=== PATIENT | female | born 1965 | race Caucasian/White ===

== ENCOUNTER 2016-10-18 15:20 | Emergency (ER) | payer SELFPAY ==
[2016-10-18 15:37] LABS: Bilirubin Negative (Negative); Blood, Urine Small (Negative); Glucose, Urine (Dipstick) Negative (Negative); Ketone, Urine Negative (Negative); Nitrite Negative (Negative); Protein, Urine (Dipstick) Negative (Neg-Trace); Urobilinogen 0.2 mg/dL (0.2-1.0)
[2016-10-18 15:43] LABS: Bacteria/HPF Rare-Few HPF (None Seen); RBC/HPF 0-3 HPF (0-3); WBC/HPF None Seen HPF (0-3)
[2016-10-18 16:08] LABS: #Basophils 0.1 thou/uL (0.0-0.2); #Eosinphils 1.2 thou/uL (0.0-0.7); #Lymphocytes 1.1 thou/uL (1.20-3.40); #Monocytes 0.6 thou/uL (0.11-0.59); #Neutrophils 3.6 thou/uL (1.40-6.50); %Basophils 0.9 % (0.0-1.0); %Eosinophils 18.5 % (0.0-10.0); %Lymphocytes 16.5 % (21.0-51.0); %Monocytes 8.7 % (0.0-10.0); Hematocrit 37.3 % (36.0-47.0); Red Blood Cell (RBC) Count 4.31 mill/uL (4.20-5.40); White Blood Cell (WBC) Count 6.5 thou/uL (4.8-10.8)
[2016-10-18 16:23] LABS: ALT (SGPT) 17 U/L (0-55); AST (SGOT) 15 U/L (5-34); Alkaline Phosphatase 68 U/L (40-150); Anion Gap 15 mmol/L (10-20); BUN (Urea Nitrogen) 14 mg/dL (9.8-20.1); Bilirubin, Total 1.2 mg/dL (0.2-1.2); Calc. Creatinine Clearance 0 mL/min (70-130); Calcium 9.5 mg/dL (7.8-10.44); Carbon Dioxide 22 mmol/L (22-29); Chloride 107 mmol/L (98-107); Estimated GFR-MDRD 54; Globulin 2.6 g/dL (2.4-3.5); Lipase 46 U/L (8-78); Protein, Total 6.5 g/dL (6.0-8.3)
--- NOTE | 2016-10-18 16:50 | ERRECORD ---
[facility] EMERGENCY RECORD HPI GENERAL (15:45 KNGU) CHIEF COMPLAINT: Patient presents for evaluation of low back pain urine frequency stomach discomfort / green stool. HISTORIAN: History provided by patient, above symptoms x 1 day no nausea vomiting or fever or chills. MECHANISM OF INJURY: Unknown mechanism. LOCATION: Symptoms are localized, most severe to lower back. QUALITY: Pain is dull in nature, described as aching. SEVERITY: Maximum severity of symptoms mild, Currently symptoms are mild. TIME COURSE: Gradual onset of symptoms, There has been no change in the patient's symptoms over time, are intermittent. ASSOCIATED WITH: No associated symptoms. EXACERBATED BY: Patient's condition exacerbated by nothing. RELIEVED BY: Nothing tried for relief. ROS (15:48 KNGU) CONSTITUTIONAL: Negative constitutional review of systems. CARDIOVASCULAR: Negative cardiovascular review of systems. RESPIRATORY: Negative respiratory review of systems. GI: Historian reports abdominal pain. GENITOURINARY FEMALE: Historian reports urgency. SKIN: Negative skin review of systems. NEUROLOGIC: Negative neurologic review of systems. NOTES: All systems reviewed, negative except as described above. PAST MEDICAL HISTORY (15:27 BDON) MEDICAL HISTORY: Past medical history includes pulmonary disease, chronic obstructive pulmonary disease, Flu vaccine up to date, Tetanus immunization up to date, Pneumococcal vaccine up to date, Notes: Carpal Tunnel Syndrome Cervical Disc Displacement Lesion of Ulnar Nerve, Past medical history includes cardiac history, congestive heart failure, myocardial infarction,cardiac history, Treated with stent placement, Past medical history includes history of hyperlipidemia, high cholesterol, currently being treated, Past medical history includes history of hypertension, which has been treated, Patient is compliant. FEMALE SURGICAL HISTORY: Surgical history of section, Surgical history of orthopedic surgery, FOOT SURG. PSYCHIATRIC HISTORY: No previous psychiatric history. SOCIAL HISTORY: Patient drinks socially, twice a month, Patient denies drug use, Patient drinks socially, Patient is a former tobacco user, smoked cigarettes, Patient quit smoking less than 10 &a-1R&a+25V*p+0X*p1514Y*c202B*c15G*c2P*p-0X&a-25V&a+1R Name: Jennyfer Brasher : 1965 F51 MedRec: [id number] AcctNum: [id number] Prepared: Sarah Oct 18, 2016 18:00 by Interface Page 1 of 3 pMD [facility] EMERGENCY RECORD years ago. KNOWN ALLERGIES baclofen methocarbamol: Source: Patient CURRENT MEDICATIONS aspirin: TABLET : Strength - 325 mg : ORAL Patient Dose: 325 mg Oral once a day. (15:27 [facility]) ranitidine HCl: CAPSULE : Strength - 150 mg : ORAL Patient Dose: 2 times a day. (15:27 [facility]) carvedilol: TABLET : Strength - 6.25 mg : ORAL Patient Dose: once a day. (15:27 [facility]) clopidogrel: TABLET : Strength - 75 mg : ORAL Patient Dose: once a day. (15:27 [facility]) Crestor: TABLET : Strength - 20 mg : ORAL Patient Dose: once a day. (15:28 [facility]) potassium: TABLET : Strength - 75 mg : ORAL Patient Dose: unk null Oral once a day. (15:28 [facility]) Vitamin D3: CAPSULE : Strength - 1,000 unit : ORAL Patient Dose: once a day. (15:28 [facility]) Fish Oil: CAPSULE : Strength - 1,000 mg : ORAL Patient Dose: once a day. (15:28 [facility]) Tylenol-Codeine #3: TABLET : Strength - 300 mg-30 mg : ORAL Patient Dose: 2 tab(s) Oral. (15:43 [facility]) Soma: TABLET : Strength - 350 mg : ORAL Patient Dose: 2 tab(s) Oral As Needed. (15:44 [facility]) VITAL SIGNS VITAL SIGNS: Pain: 7, Time: 10/18/2016 15:22. (15:22 BDON) BP: 137/69, Pulse: 73, Resp: 17, Temp: 97.6 (Oral), O2 sat: 96, Time: 10/18/2016 15:25. (15:25 BDON) PHYSICAL EXAM (15:49 [facility]) CONSTITUTIONAL: Vital signs reviewed, Patient afebrile, Pulse normal, Blood pressure normal, Respiratory rate normal, Patient appears non toxic, Patient appears pain free, Patient alert and oriented to person, place and time. EYES: Eye exam normal. RESPIRATORY CHEST: Respiratory and chest exam normal. &a-1R&a+25V*p+0X*n2733D*c202B*c15G*c2P*p-0X&a-25V&a+1R Name: Jennyfer Brasher DOB: 1965 F51 MedRec: [id number] AcctNum: [id number] Prepared: SatOct 18, 2016 18:00 by Interface Page 2 of 3 pMD [facility] EMERGENCY RECORD CARDIOVASCULAR: Cardiovascular assessment normal. ABDOMEN FEMALE: Abdominal exam included findings of abdomen tender, to the epigastric region, mild intensity, Bowel sounds normal. BACK: Back exam included findings of normal inspection, Tenderness, paraspinal to the left lower back, paraspinal to the right lower. NEURO: Neuro exam normal. SKIN: Skin exam normal. PSYCHIATRIC: Psychiatric exam included findings of patient oriented to person place and time. PROBLEM LIST No recorded problems DIAGNOSIS (16:30 KNGU) FINAL: PRIMARY: LOW BACK PAIN. PRESCRIPTION (16:29 KNGU) acetaminophen-codeine: TABLET : 300 mg-30 mg : ORAL : Quantity: 1 Unit: tab(s) Route: ORAL Schedule: every 6 hours PRN Dispense: 12 Unit: tab(s) May substitute. Refills: No Refills . NOTES: No Refills. Flexeril: TABLET : 10 mg : ORAL : Quantity: 1 Unit: tab(s) Route: ORAL Schedule: As Needed Dispense: 10 Unit: tab(s) May substitute. Refills: No Refills . NOTES: Please take 1 tablet nightly as needed for spasm No Refills. DISPOSITION PATIENT: Disposition Type: Discharge, Disposition: *Discharge Home. (16:30 GU) Patient left the department. (16:38 [facility]) [place]: ANDRA=BETTINA Rodriguez, Sandra DALAL=MD Katarina, Cassy [facility]=BETTINA Hassan, Lachelle &a-1R&a+25V*p+0X*d4264G*c202B*c15G*c2P*p-0X&a-25V&a+1R Name: Jennyfer Brasher : 1965 F51 MedRec: [id number] AcctNum: [id number] Prepared: SatOct 18, 2016 18:00 by Interface Page 3 of 3 pMD MTDD
--- NOTE | 2016-10-18 18:06 | PICIS ---
[facility] EMERGENCY RECORD TRIAGE (SatOct 18, 2016 15:24 BDON) TRIAGE NOTES: Low back pain, nausea and green color stool. Urinary frequency. (SatOct 18, 2016 15:24 BDON) PATIENT: NAME: Jennyfer Brasher, AGE: 51, GENDER: female, : Sat1965, TIME OF GREET: SatOct 18, 2016 15:20, PREFERRED LANGUAGE: Palauan, ETHNICITY: Not or , ECODE BILLING MAP: [facility], SSN: [id number], Zip Code: [address], KG WEIGHT: 55.79, PHONE: , , , PERSON ID: [id number], PCP: Michelle Roberts /Tanisha. (SatOct 18, 2016 15:24 BDON) COMPLAINT: LOW BACK PAIN,ABNORMAL BOWELS. (SatOct 18, 2016 15:24 BDON) ADMISSION: URGENCY: 3 Urgent, ADMISSION SOURCE: Home, TRANSPORT: Walk-in, BED: TRIAGE. (SatOct 18, 2016 15:24 BDON) ASSESSMENT: Assessment: Low back pain, urinary frequency with dark green stool, Symptoms began 1 week ago. (15:27 BDON) TREATMENTS IN PROGRESS: Treatments given Prehospital: none. (15:27 BDON) PROVIDERS: TRIAGE NURSE: Sandra Rodriguez RN. (Sarah Oct 18, 2016 15:24 BDON) VITAL SIGNS: Pain 7, Time 10/18/2016 15:22. (15:22 BDON) PREVIOUS VISIT ALLERGIES: baclofen, methocarbamol. (SatOct 18, 2016 15:24 BDON) baclofen, methocarbamol. (15:27 BDON) KNOWN ALLERGIES baclofen methocarbamol: Source: Patient CURRENT MEDICATIONS aspirin: TABLET : Strength - 325 mg : ORAL Patient Dose: 325 mg Oral once a day. (15:27 [facility]) ranitidine HCl: CAPSULE : Strength - 150 mg : ORAL Patient Dose: 2 times a day. (15:27 [facility]) carvedilol: TABLET : Strength - 6.25 mg : ORAL Patient Dose: once a day. (15:27 [facility]) clopidogrel: TABLET : Strength - 75 mg : ORAL Patient Dose: once a day. (15:27 [facility]) Crestor: TABLET : Strength - 20 mg : ORAL Patient Dose: once a day. (15:28 [facility]) potassium: TABLET : Strength - 75 mg : ORAL Patient Dose: unk null Oral once a day. (15:28 [facility]) Vitamin D3: CAPSULE : Strength - 1,000 unit : ORAL &a-1R&a+25V*p+0X*l0484Z*c202B*c15G*c2P*p-0X&a-25V&a+1R Name: Jennyfer Brasher : 1965 F51 MedRec: [id number] AcctNum: [id number] Prepared: Sarah Oct 18, 2016 18:01 by Interface Page 1 of 7 pMD [facility] EMERGENCY RECORD Patient Dose: once a day. (15:28 [facility]) Fish Oil: CAPSULE : Strength - 1,000 mg : ORAL Patient Dose: once a day. (15:28 [facility]) Tylenol-Codeine #3: TABLET : Strength - 300 mg-30 mg : ORAL Patient Dose: 2 tab(s) Oral. (15:43 [facility]) Soma: TABLET : Strength - 350 mg : ORAL Patient Dose: 2 tab(s) Oral As Needed. (15:44 [facility]) VITAL SIGNS VITAL SIGNS: Pain: 7, Time: 10/18/2016 15:22. (15:22 BDON) BP: 137/69, Pulse: 73, Resp: 17, Temp: 97.6 (Oral), O2 sat: 96, Time: 10/18/2016 15:25. (15:25 BDON) NURSING ASSESSMENT: BACK (15:44 [facility]) CONSTITUTIONAL: Complex assessment performed, Patient arrives ambulatory, Gait steady, History obtained from patient, Patient appears comfortable, Patient cooperative, Patient alert, Oriented to person, place and time, Skin warm, Skin dry, Skin normal in color, Pt reports lower back pain "all this last week and this week." She also reports having green bowel movements, saying "I as fine yesterday morning, and yesterday around 1 it just turned dark green." Reports stool is alos runny, accompanied by nausea. PAIN: to the lower back, on a scale 0-10 patient rates pain as 7. BACK: Back assessment findings include tenderness to, bilateral lower back, Right radial pulse +3(easily palpated, considered normal), Left radial pulse +3(easily palpated, considered normal). NECK: Neck assessment findings include trachea midline. SAFETY: Side rails up, Cart/Stretcher in lowest position, Call light within reach, Hospital ID band on. NURSING PROCEDURE: DISCHARGE NOTE (16:36 [facility]) DISCHARGE: Patient discharged to home, ambulating without assistance, driving self, unaccompanied, Discharge instructions given to patient, Simple or moderate discharge teaching performed, by BETTINA Larose, Patient treated and evaluated by physician. BELONGINGS: Belongings and valuables with patient upon arrival to the Emergency Department include:, Belongings and valuables with patient at time of discharge include:. NURSING PROCEDURE: LAB DRAW (15:45 [facility]) LAB DRAW: Initial lab draw performed, by venipuncture, from right antecubital, in one attempt, Lab specimens labeled in the presence of the patient and sent to lab. SAFETY: Side rails up, Cart/Stretcher in lowest position, Call light within reach, Hospital ID band on. &a-1R&a+25V*p+0X*q8993L*c202B*c15G*c2P*p-0X&a-25V&a+1R Name: Jennyfer Brasher : 1965 F51 MedRec: [id number] AcctNum: [id number] Prepared: SatOct 18, 2016 18:01 by Interface Page 2 of 7 D [facility] EMERGENCY RECORD NURSING PROCEDURE: NURSE NOTES (15:30 BDON) NURSES NOTES: Patient assisted to bathroom with steady gait. ORDER DETAILS Order Name: CBC with Differential, Status: Active, Time: 15:41 10/18/2016, User: AMERICO, - Ordered for: MD Bray Kim, - Entered by: MD Bray Kim - SatOct 18, 2016 15:41, - Quantity: 1, Order Name: Comprehensive Metabolic Panel, Status: Active, Time: 15:41 10/18/2016, User: AMERICO, - Ordered for: MD Bray Kim, - Entered by: MD Bray Kim - SatOct 18, 2016 15:41, - Quantity: 1, Order Name: Lipase, Status: Active, Time: 15:41 10/18/2016, User: AMERICO, - Ordered for: MD Bray Kim, - Entered by: MD Bray Kim - Sarah Oct 18, 2016 15:41, - Quantity: 1, Order Name: Urinalysis w/ Rflx Microscopic, Status: Active, Time: 15:24 10/18/2016, User: ANDRA, - Ordered for: MD Bray Kim, - Entered by: BETTINA Rodriguez Bettye - [facility] Oct 18, 2016 15:24, - Quantity: 1. HPI GENERAL (15:45 KNGU) CHIEF COMPLAINT: Patient presents for evaluation of low back pain urine frequency stomach discomfort / green stool. HISTORIAN: History provided by patient, above symptoms x 1 day no nausea vomiting or fever or chills. MECHANISM OF INJURY: Unknown mechanism. LOCATION: Symptoms are localized, most severe to lower back. QUALITY: Pain is dull in nature, described as aching. SEVERITY: Maximum severity of symptoms mild, Currently symptoms are mild. TIME COURSE: Gradual onset of symptoms, There has been no change in the patient's symptoms over time, are intermittent. ASSOCIATED WITH: No associated symptoms. EXACERBATED BY: Patient's condition exacerbated by nothing. RELIEVED BY: Nothing tried for relief. ROS (15:48 KNGU) &a-1R&a+25V*p+0X*d5068U*c202B*c15G*c2P*p-0X&a-25V&a+1R Name: Jennyfer Brasher : 1965 F51 MedRec: [id number] AcctNum: [id number] Prepared: SatOct 18, 2016 18:01 by Interface Page 3 of 7 pMD [facility] EMERGENCY RECORD CONSTITUTIONAL: Negative constitutional review of systems. CARDIOVASCULAR: Negative cardiovascular review of systems. RESPIRATORY: Negative respiratory review of systems. GI: Historian reports abdominal pain. GENITOURINARY FEMALE: Historian reports urgency. SKIN: Negative skin review of systems. NEUROLOGIC: Negative neurologic review of systems. NOTES: All systems reviewed, negative except as described above. PAST MEDICAL HISTORY (15:27 BDON) MEDICAL HISTORY: Past medical history includes pulmonary disease, chronic obstructive pulmonary disease, Flu vaccine up to date, Tetanus immunization up to date, Pneumococcal vaccine up to date, Notes: Carpal Tunnel Syndrome Cervical Disc Displacement Lesion of Ulnar Nerve, Past medical history includes cardiac history, congestive heart failure, myocardial infarction,cardiac history, Treated with stent placement, Past medical history includes history of hyperlipidemia, high cholesterol, currently being treated, Past medical history includes history of hypertension, which has been treated, Patient is compliant. FEMALE SURGICAL HISTORY: Surgical history of section, Surgical history of orthopedic surgery, FOOT SURG. PSYCHIATRIC HISTORY: No previous psychiatric history. SOCIAL HISTORY: Patient drinks socially, twice a month, Patient denies drug use, Patient drinks socially, Patient is a former tobacco user, smoked cigarettes, Patient quit smoking less than 10 years ago. PHYSICAL EXAM (15:49 KNGU) CONSTITUTIONAL: Vital signs reviewed, Patient afebrile, Pulse normal, Blood pressure normal, Respiratory rate normal, Patient appears non toxic, Patient appears pain free, Patient alert and oriented to person, place and time. EYES: Eye exam normal. RESPIRATORY CHEST: Respiratory and chest exam normal. CARDIOVASCULAR: Cardiovascular assessment normal. ABDOMEN FEMALE: Abdominal exam included findings of abdomen tender, to the epigastric region, mild intensity, Bowel sounds normal. BACK: Back exam included findings of normal inspection, Tenderness, paraspinal to the left lower back, paraspinal to the right lower. NEURO: Neuro exam normal. SKIN: Skin exam normal. PSYCHIATRIC: Psychiatric exam included findings of patient oriented to person place and time. EVENTS TRANSFER: Triage to Emergency Triage. (Sarah Oct 18, 2016 15:24 &a-1R&a+25V*p+0X*s2578M*c202B*c15G*c2P*p-0X&a-25V&a+1R Name: Jennyfer Brasher : 1965 F51 MedRec: [id number] AcctNum: [id number] Prepared: SatOct 18, 2016 18:01 by Interface Page 4 of 7 D [facility] EMERGENCY RECORD BDON) Emergency Triage to Emergency Room *TR1. (15:24 BDON) Emergency Emergency Room *TR1 to -05. (15:26 BDON) Removed from Emergency Emergency Room -05. (16:38 [facility]) PROBLEM LIST No recorded problems DIAGNOSIS (16:30 KNGU) FINAL: PRIMARY: LOW BACK PAIN. DISPOSITION PATIENT: Disposition Type: Discharge, Disposition: *Discharge Home. (16:30 KNGU) Patient left the department. (16:38 [facility]) INSTRUCTION (16:30 KNGU) DISCHARGE: LOW BACK PAIN GENERAL. FOLLOWUP: [facility], [facility], [address], [facility] [address], . SPECIAL: Please avoid heavy lifting/ or strenuous activity Follow-up with your primary physician as needed. PRESCRIPTION (16:29 KNGU) acetaminophen-codeine: TABLET : 300 mg-30 mg : ORAL : Quantity: 1 Unit: tab(s) Route: ORAL Schedule: every 6 hours PRN Dispense: 12 Unit: tab(s) May substitute. Refills: No Refills . NOTES: No Refills. Flexeril: TABLET : 10 mg : ORAL : Quantity: 1 Unit: tab(s) Route: ORAL Schedule: As Needed Dispense: 10 Unit: tab(s) May substitute. Refills: No Refills . NOTES: Please take 1 tablet nightly as needed for spasm No Refills. IMAGING (16:37 [facility]) *SUPPLY CHARGE SHEET: Image captured from scanner. *DISCHARGE INSTRUCTIONS RECEIPT: Image captured from scanner. ADMIN (17:59 [facility]) DIGITAL SIGNATURE: MD Bray Kim. RESULTS (16:26 [facility]) LABORATORY: Lipase Collection DT: SatOct 18, 2016 16:04, Lipase 46 U/L, Range (8-78). Comprehensive Metabolic Panel Collection DT: SatOct 18, 2016 16:04, Sodium 140 mmol/L, Range (136-145), Potassium 3.7 mmol/L, Range (3.5-5.1), Chloride 107 mmol/L, Range (98-107), &a-1R&a+25V*p+0X*b5299F*c202B*c15G*c2P*p-0X&a-25V&a+1R Name: Anshu Jennyfer A : 1965 F51 MedRec: [id number] AcctNum: [id number] Prepared: SatOct 18, 2016 18:01 by Interface Page 5 of 7 pMD [facility] EMERGENCY RECORD Carbon Dioxide 22 mmol/L, Range (22-29), Anion Gap 15 mmol/L, Range (10-20), BUN (Urea Nitrogen) 14 mg/dL, Range (9.8-20.1), Creatinine 1.07 mg/dL, Range (0.6-1.1), Estimated GFR-MDRD 54 , Reference Range for Estimated GFR: Greater than 90, mL/min/1.73 m2 NOTE: The MDRD equation has not been validated for use, with the elderly (over 70 years of age), women, patients with, serious comorbid condition or persons with extremes of body size, muscle, mass, or nutritional status. , Glucose 104 mg/dL, Range (70-105), Calcium 9.5 mg/dL, Range (7.8-10.44), Bilirubin, Total 1.2 mg/dL, Range (0.2-1.2), Protein, Total 6.5 g/dL, Range (6.0-8.3), NOTE: Plasma values are generally 0.3 to 0.5 g/dL higher than serum values, due to the presence of fibrinogen. , Albumin 3.9 g/dL, Range (3.5-5.0), Globulin 2.6 g/dL, Range (2.4-3.5), Alb/Glob Ratio 1.5 g/dL, Range (1.2-2.2), Alkaline Phosphatase 68 U/L, Range (40-150), AST (SGOT) 15 U/L, Range (5-34), ALT (SGPT) 17 U/L, Range (0-55). CBC with Differential Collection DT: SatOct 18, 2016 16:04, White Blood Cell (WBC) Count 6.5 thou/uL, Range (4.8-10.8), Red Blood Cell (RBC) Count 4.31 mill/uL, Range (4.20-5.40), Hemoglobin 12.5 g/dL, Range (12.0-16.0), Hematocrit 37.3 %, Range (36.0-47.0), Mean Corpuscular Volume 86.6 fl, Range (81.0-99.0), Mean Corpuscular Hemoglobin 29.1 pg, Range (27.0-31.0), Mean Corpuscular HGB CONC 33.6 g/dL, Range (32.0-36.0), RBC Distribution Width 13.6 %, Range (11.5-14.5), Platelet Count 211 thou/uL, Range (130-400), *Mean Platelet Volume 7.0 - L fL, Range (7.4-10.4), %Neutrophils 55.4 %, Range (42.0-75.0), *%Lymphocytes 16.5 - L %, Range (21.0-51.0), %Monocytes 8.7 %, Range (0.0-10.0), *%Eosinophils 18.5 - H %, Range (0.0-10.0), %Basophils 0.9 %, Range (0.0-1.0), #Neutrophils 3.6 thou/uL, Range (1.40-6.50), *#Lymphocytes 1.1 - L thou/uL, Range (1.20-3.40), *#Monocytes 0.6 - H thou/uL, Range (0.11-0.59), *#Eosinphils 1.2 - H thou/uL, Range (0.0-0.7), #Basophils 0.1 thou/uL, Range (0.0-0.2). Urine Microscopic Collection DT: SatOct 18, 2016 15:34, RBC/HPF 0-3 HPF, Range (0-3), WBC/HPF None Seen HPF, Range (0-3), *Squamous Epithelial 4-6 - H HPF, Range (0-3), Bacteria/HPF Rare-Few HPF, Range (None Seen). &a-1R&a+25V*p+0X*q3688O*c202B*c15G*c2P*p-0X&a-25V&a+1R Name: Jennyfer Brasher : 1965 F51 MedRec: [id number] AcctNum: [id number] Prepared: SatOct 18, 2016 18:01 by Interface Page 6 of 7 pMD [facility] - [facility] EMERGENCY RECORD Urinalysis w/ Rflx Microscopic Collection DT: SatOct 18, 2016 15:34, Color Yellow , Range (Yellow), Clarity Clear , Range (Clear), Specific [place], Urine 1.010 , Range (1.005-1.030), pH, Urine 5.5 , Range (5.0-9.0), Leukocyte Negative , Range (Negative), Nitrite Negative , Range (Negative), Protein, Urine (Dipstick) Negative mg/dL, Range (Neg-Trace), Glucose, Urine (Dipstick) Negative mg/dL, Range (Negative), Ketone, Urine Negative mg/dL, Range (Negative), Urobilinogen 0.2 mg/dL, Range (0.2-1.0), Bilirubin Negative , Range (Negative), *Blood, Urine Small - H , Range (Negative). [place]: ANDRA=BETTINA Rodriguez, Sandra DALALGU=MD Katarina, Cassy [facility]=BETTINA Hassan, Lachelle &a-1R&a+25V*p+0X*l3430G*c202B*c15G*c2P*p-0X&a-25V&a+1R Name: Jennyfer Brasher : 1965 F51 MedRec: [id number] AcctNum: [id number] Prepared: SatOct 18, 2016 18:01 by Interface Page 7 of 7 pMD MTDD
== END 2016-10-18 16:35 | disposition home or self-care (01) ==
LOC: NAV ERS 15:20
DX: M54.5 Low back pain (principal); J44.9 Chronic obstructive pulmonary disease, unspecified; I11.0 Hypertensive heart disease with heart failure; I50.9 Heart failure, unspecified; E78.5 Hyperlipidemia, unspecified
CPT/HCPCS: 80053; 81003; 81015; 83690; 85025; 99283

== ENCOUNTER 2017-02-28 20:51 | Emergency (ER) | payer SELFPAY ==
[2017-02-28 21:48] LABS: Bilirubin Negative (Negative); Blood, Urine Small (Negative); Clarity Clear (Clear); Glucose, Urine (Dipstick) Negative (Negative); Leukocyte Negative (Negative); Nitrite Negative (Negative); Protein, Urine (Dipstick) Negative (Neg-Trace)
[2017-02-28 21:49] LABS: RBC/HPF 0-3 HPF (0-3); Squamous Epithelial 0-3 HPF (0-3); WBC/HPF 0-3 HPF (0-3)
[2017-02-28] MEDS ORDERED: Azithromycin 250 MG TAB ONE (21:58)
== END 2017-02-28 22:05 | disposition home or self-care (01) ==
LOC: NAV ERS 20:51
DX: H66.92 Otitis media, unspecified, left ear (principal); M54.5 Low back pain; I25.2 Old myocardial infarction; I25.10 Atherosclerotic heart disease of native coronary artery without angina pectoris; E03.9 Hypothyroidism, unspecified; K21.9 Gastro-esophageal reflux disease without esophagitis; E78.2 Mixed hyperlipidemia; I13.0 Hypertensive heart and chronic kidney disease with heart failure and stage 1 through stage 4 chronic kidney disease, or unspecified chronic kidney disease; I50.9 Heart failure, unspecified; J44.9 Chronic obstructive pulmonary disease, unspecified; N18.3 Chronic kidney disease, stage 3 (moderate); Z87.891 Personal history of nicotine dependence; Z79.82 Long term (current) use of aspirin; Z79.02 Long term (current) use of antithrombotics/antiplatelets
CPT/HCPCS: 81003; 81015; 99283

== ENCOUNTER 2017-03-17 13:52 | Emergency (ER) | payer SELFPAY ==
[2017-03-17 14:43] LABS: Bilirubin Negative (Negative); Blood, Urine Trace (Negative); Glucose, Urine (Dipstick) Negative (Negative); Leukocyte Trace (Negative); Nitrite Negative (Negative); Protein, Urine (Dipstick) Negative (Neg-Trace); Urobilinogen 0.2 mg/dL (0.2-1.0)
[2017-03-17 14:51] LABS: Clarity SL HAZY (Clear)
[2017-03-17 14:57] LABS: #Basophils 0.1 thou/uL (0.0-0.2); #Eosinphils 0.7 thou/uL (0.0-0.7); #Lymphocytes 1.3 thou/uL (1.20-3.40); #Monocytes 0.7 thou/uL (0.11-0.59); #Neutrophils 4.9 thou/uL (1.40-6.50); %Basophils 0.8 % (0.0-1.0); %Eosinophils 8.5 % (0.0-10.0); %Lymphocytes 17.1 % (21.0-51.0); %Monocytes 9.4 % (0.0-10.0); %Neutrophils 64.2 % (42.0-75.0); Hemoglobin 13.5 g/dL (12.0-16.0); Mean Corpuscular HGB CONC 34.1 g/dL (32.0-36.0); Mean Corpuscular Hemoglobin 28.9 pg (27.0-31.0); Mean Corpuscular Volume 84.8 fl (81.0-99.0); Mean Platelet Volume 8.5 fL (7.4-10.4); Platelet Count 248 thou/uL (130-400); RBC Distribution Width 12.4 % (11.5-14.5); Red Blood Cell (RBC) Count 4.68 mill/uL (4.20-5.40); White Blood Cell (WBC) Count 7.6 thou/uL (4.8-10.8)
[2017-03-17 15:04] LABS: Specific Gravity, Urine 1.004 (1.002-1.036)
[2017-03-17 15:08] LABS: ALT (SGPT) 10 U/L (8-55); AST (SGOT) 14 U/L (5-34); Albumin 4.2 g/dL (3.5-5.0); Alkaline Phosphatase 72 U/L (40-150); Anion Gap 15 mmol/L (10-20); BUN (Urea Nitrogen) 15 mg/dL (9.8-20.1); Bilirubin, Total 0.8 mg/dL (0.2-1.2); Calc. Creatinine Clearance 0 mL/min (70-130); Calcium 10.1 mg/dL (7.8-10.44); Carbon Dioxide 21 mmol/L (22-29); Chloride 107 mmol/L (98-107); Estimated GFR-MDRD 40; Globulin 2.9 g/dL (2.4-3.5); Glucose 103 mg/dL (70-105); Lipase 75 U/L (8-78); Potassium 3.8 mmol/L (3.5-5.1); Protein, Total 7.1 g/dL (6.0-8.3); Sodium 139 mmol/L (136-145)
[2017-03-17 15:10] LABS: Bacteria/HPF Rare-Few HPF (None Seen); RBC/HPF None Seen HPF (0-3); Squamous Epithelial 0-3 HPF (0-3); WBC/HPF 0-3 HPF (0-3)
--- NOTE | 2017-03-17 16:20 | CT ---
CT ABDOMEN AND PELVIS NONCONTRAST 03/17/17 HISTORY: Right flank pain. FINDINGS: Each renal collecting system and ureter are decompressed without stone apparent. There is scarring a t the superior pole of the right kidney with a small focus of dystrophic calcification. No stones ar e evident on the left. Lack of contrast limits evaluation for other abnormalities. There is prominent calcification through out the arterial structures. Degenerative changes involve the lumbar spine. IMPRESSION: 1. Focal area of scarring at the superior pole of the right kidney suggests chronic or prior in fections. There is no CT evidence of urinary tract obstruction or calcification. 2. Atherosclerosis. POS: [facility]
== END 2017-03-17 15:33 | disposition home or self-care (01) ==
LOC: NAV ERS 13:52
DX: M54.5 Low back pain (principal); I25.2 Old myocardial infarction; E03.9 Hypothyroidism, unspecified; E78.5 Hyperlipidemia, unspecified; E66.9 Obesity, unspecified; J44.9 Chronic obstructive pulmonary disease, unspecified; I13.2 Hypertensive heart and chronic kidney disease with heart failure and with stage 5 chronic kidney disease, or end stage renal disease; I50.9 Heart failure, unspecified; N18.3 Chronic kidney disease, stage 3 (moderate); Z87.891 Personal history of nicotine dependence; Z79.82 Long term (current) use of aspirin; Z79.899 Other long term (current) drug therapy
CPT/HCPCS: 74176; 80053; 81003; 81015; 83690; 85025

== ENCOUNTER 2017-06-26 14:11 | Emergency (ER) | payer OTHER, MEDICAID ==
[2017-06-26] MEDS ORDERED: Ketorolac Tromethamine 30 MG/ML VIAL ONE (14:41)
[2017-06-26 14:53] LABS: Bilirubin Negative (Negative); Blood, Urine Negative (Negative); Clarity SL HAZY (Clear); Glucose, Urine (Dipstick) Negative (Negative); Leukocyte Trace (Negative); Nitrite Negative (Negative); Protein, Urine (Dipstick) Negative (Neg-Trace); Specific Gravity, Urine 1.015 (1.005-1.030); Urobilinogen 0.2 mg/dL (0.2-1.0)
[2017-06-26 14:56] LABS: Bacteria/HPF Rare-Few HPF (None Seen); RBC/HPF 0-3 HPF (0-3); Squamous Epithelial 0-3 HPF (0-3); WBC/HPF 0-3 HPF (0-3)
== END 2017-06-26 15:06 | disposition home or self-care (01) ==
LOC: NAV ERS 14:11
DX: M62.830 Muscle spasm of back (principal); I13.0 Hypertensive heart and chronic kidney disease with heart failure and stage 1 through stage 4 chronic kidney disease, or unspecified chronic kidney disease; I50.9 Heart failure, unspecified; N18.3 Chronic kidney disease, stage 3 (moderate); I25.2 Old myocardial infarction; I25.10 Atherosclerotic heart disease of native coronary artery without angina pectoris; E03.9 Hypothyroidism, unspecified; E78.1 Pure hyperglyceridemia; E66.9 Obesity, unspecified; J44.9 Chronic obstructive pulmonary disease, unspecified; K21.9 Gastro-esophageal reflux disease without esophagitis; Z79.82 Long term (current) use of aspirin; Z79.891 Long term (current) use of opiate analgesic; Z87.891 Personal history of nicotine dependence
CPT/HCPCS: 81003; 81015; 87086; 96372; J1885

== ENCOUNTER 2017-10-09 13:35 | Emergency (ER) | payer MEDICAID ==
[2017-10-09] MEDS ORDERED: Ibuprofen 200 MG TAB ONE (14:00)
--- NOTE | 2017-10-09 14:36 | RAD ---
LEFT KNEE FOUR VIEWS: History: Fall, left knee injury. FINDINGS: There is mild tricompartmental osteophytosis and chondrocalcinosis. No acute fracture, dislocation, o r fluid distention of the joint capsule are evident. IMPRESSION: Mild osteoarthritic changes left knee. POS: [facility]
== END 2017-10-09 15:09 | disposition home or self-care (01) ==
LOC: NAV ERS 13:35
DX: S80.02XA Contusion of left knee, initial encounter (principal); I13.0 Hypertensive heart and chronic kidney disease with heart failure and stage 1 through stage 4 chronic kidney disease, or unspecified chronic kidney disease; N18.3 Chronic kidney disease, stage 3 (moderate); I50.9 Heart failure, unspecified; I25.10 Atherosclerotic heart disease of native coronary artery without angina pectoris; I25.2 Old myocardial infarction; E03.9 Hypothyroidism, unspecified; K21.9 Gastro-esophageal reflux disease without esophagitis; E78.2 Mixed hyperlipidemia; J44.9 Chronic obstructive pulmonary disease, unspecified; E66.9 Obesity, unspecified; Z87.891 Personal history of nicotine dependence; W01.0XXA Fall on same level from slipping, tripping and stumbling without subsequent striking against object, initial encounter

== ENCOUNTER 2018-01-16 15:06 | Outpatient (CLI) | payer OTHER ==
--- NOTE | 2018-01-16 16:19 | RAD ---
TWO VIEWS LEFT KNEE: DATE: 01/16/18. HISTORY: Bilateral knee pain, bilateral knee arthritis. COMPARISON: 10/09/17. FINDINGS: Mild tricompartmental osteophytosis is again present. No significant joint space narrowing is apprec iated. There is no fracture or dislocation identified. There has been no interval change when terri red to the prior study. IMPRESSION: Stable mild osteoarthritis left knee. POS: [facility]
--- NOTE | 2018-01-16 16:20 | RAD ---
TWO VIEWS RIGHT KNEE: 01/16/18 HISTORY: Bilateral knee pain. Bilateral knee osteoarthritis. COMPARISON: None available. FINDINGS: A few very tiny scattered osteophytes are seen, but there is no joint space narrowing, and no fractur e or dislocation is seen. No other osseous abnormality. IMPRESSION: Minimal osteoarthritis without evidence of an acute osseous abnormality. POS: [facility]
== END 2018-01-16 15:07 | disposition home or self-care (01) ==
LOC: NAV RAD 15:06
PROVIDERS: ATTEND Nurse Practitioner Family
DX: M17.0 Bilateral primary osteoarthritis of knee (principal)

== ENCOUNTER 2018-03-12 11:28 | Emergency (ER) | payer MEDICAID ==
--- NOTE | 2018-03-12 13:07 | RAD ---
TWO VIEWS OF THE CHEST: Comparison: 06-22-16 History: Chest pain, shortness of breath. FINDINGS: Two views of the chest shows a normal sized cardiomediastinal silhouette with atherosclerotic calcifi cations seen in the aorta. There is no evidence of consolidation, mass, or pleural effusion. IMPRESSION: 1. No evidence of acute cardiopulmonary disease. 2. Atherosclerotic disease. POS: [facility]
== END 2018-03-12 13:15 | disposition home or self-care (01) ==
LOC: NAV ERS 11:28
DX: J06.9 Acute upper respiratory infection, unspecified (principal); M06.9 Rheumatoid arthritis, unspecified; I25.10 Atherosclerotic heart disease of native coronary artery without angina pectoris; I25.2 Old myocardial infarction; E03.9 Hypothyroidism, unspecified; K21.9 Gastro-esophageal reflux disease without esophagitis; E78.2 Mixed hyperlipidemia; J44.1 Chronic obstructive pulmonary disease with (acute) exacerbation; I13.0 Hypertensive heart and chronic kidney disease with heart failure and stage 1 through stage 4 chronic kidney disease, or unspecified chronic kidney disease; I50.9 Heart failure, unspecified; N18.3 Chronic kidney disease, stage 3 (moderate); G56.00 Carpal tunnel syndrome, unspecified upper limb; M62.82 Rhabdomyolysis; Z87.891 Personal history of nicotine dependence; Z79.02 Long term (current) use of antithrombotics/antiplatelets; Z79.82 Long term (current) use of aspirin; Z79.899 Other long term (current) drug therapy
CPT/HCPCS: 71046; 93005; J7620

== ENCOUNTER 2018-07-27 12:07 | Emergency (ER) | payer MEDICAID, OTHER ==
[2018-07-27 14:45] LABS: #Basophils 0.1 thou/uL (0.0-0.2); #Eosinphils 1.3 thou/uL (0.0-0.7); #Lymphocytes 1.9 thou/uL (1.20-3.40); #Monocytes 0.6 thou/uL (0.11-0.59); %Basophils 1.2 % (0.0-1.0); %Eosinophils 14.4 % (0.0-10.0); %Lymphocytes 21.3 % (21.0-51.0); %Monocytes 6.5 % (0.0-10.0); %Neutrophils 56.6 % (42.0-75.0); Hemoglobin 14.6 g/dL (12.0-16.0); Mean Corpuscular HGB CONC 32.5 g/dL (32.0-36.0); Mean Corpuscular Hemoglobin 29.8 pg (27.0-31.0); Mean Corpuscular Volume 91.8 fL (78.0-98.0); Mean Platelet Volume 7.4 fL (7.4-10.4); Platelet Count 255 thou/uL (130-400); RBC Distribution Width 12.2 % (11.5-14.5); Red Blood Cell (RBC) Count 4.91 mill/uL (4.20-5.40); White Blood Cell (WBC) Count 8.8 thou/uL (4.8-10.8)
[2018-07-27 15:07] LABS: ALT (SGPT) 19 U/L (8-55); AST (SGOT) 25 U/L (5-34); Albumin 4.6 g/dL (3.5-5.0); Alkaline Phosphatase 75 U/L (40-150); Anion Gap 15 mmol/L (10-20); BUN (Urea Nitrogen) 15 mg/dL (9.8-20.1); Bilirubin, Total 0.7 mg/dL (0.2-1.2); Calc. Creatinine Clearance 0 mL/min (70-130); Calcium 10.3 mg/dL (7.8-10.44); Carbon Dioxide 23 mmol/L (22-29); Chloride 107 mmol/L (98-107); Estimated GFR-MDRD 47; Globulin 2.6 g/dL (2.4-3.5); Glucose 107 mg/dL (70-105); Potassium 4.2 mmol/L (3.5-5.1); Protein, Total 7.2 g/dL (6.0-8.3); Sodium 141 mmol/L (136-145)
[2018-07-27 15:08] LABS: Troponin I Less than 0.010 ng/mL (< 0.028)
--- NOTE | 2018-07-27 15:12 | RAD ---
CHEST 2 VIEWS: HISTORY: Right upper chest pain. COMPARISON: A 03/12/2018 study. FINDINGS: Heart size is slightly enlarged with atherosclerotic changes of the aorta. The lungs are clear of in filtrates. There are some arthritic changes of the spine. IMPRESSION: Minimal cardiomegaly. POS: [facility]
[2018-07-27] MEDS ORDERED: predniSONE 20 MG TAB ONE (15:25)
== END 2018-07-27 16:27 | disposition short-term general hospital (02) ==
LOC: NAV ERS 12:07
DX: R07.9 Chest pain, unspecified (principal); R94.31 Abnormal electrocardiogram [ECG] [EKG]; I25.2 Old myocardial infarction; M06.9 Rheumatoid arthritis, unspecified; K21.9 Gastro-esophageal reflux disease without esophagitis; E78.1 Pure hyperglyceridemia; E66.9 Obesity, unspecified; I13.0 Hypertensive heart and chronic kidney disease with heart failure and stage 1 through stage 4 chronic kidney disease, or unspecified chronic kidney disease; I50.9 Heart failure, unspecified; N18.3 Chronic kidney disease, stage 3 (moderate); Z87.891 Personal history of nicotine dependence
CPT/HCPCS: 71046; 80053; 83880; 84484; 85025; 93005; 96374; J2270; J7506

== ENCOUNTER 2018-08-11 14:41 | Outpatient (CLI) | payer OTHER ==
--- NOTE | 2018-08-11 16:39 | ULT ---
SOFT TISSUE ULTRASOUND OF THE NECK: Clinical history: Right sided neck pain, edema. FINDINGS: Localized soft tissue ultrasound of the right neck reveals soft tissue edema without a discrete mass, cyst or other localizable pathology. IMPRESSION: Soft tissue edema of the right neck. No focal mass or cyst is seen. Recommend clinical correlation in this regard. As necessary, findings may be further assessed with dedicated CT neck with contrast, as follow up. POS: [facility]
== END 2018-08-11 14:42 | disposition home or self-care (01) ==
LOC: NAV ULT 14:41
PROVIDERS: ATTEND Nurse Practitioner Family
DX: M54.2 Cervicalgia (principal); R60.0 Localized edema
CPT/HCPCS: 76999

== ENCOUNTER 2018-12-02 09:28 | Emergency (ER) | payer OTHER ==
[2018-12-02] MEDS ORDERED: methylPREDNISolone Acetate 40 mg/ml Vial ONE (10:31)
--- NOTE | 2018-12-02 10:39 | CT ---
CT LUMBAR SPINE NONCONTRAST: Date: 12/02/18 HISTORY: 53-year-old female with low back pain and bilateral lumbar radiculopathy. FINDINGS: There are five lumbar-type vertebrae. Vertebral body heights are maintained. No severe disc space marina rowing at any level. No spondylolysis or spondylolisthesis. No high grade facet DJD at any level. At L2-3, there is mild diffuse disc bulge and mild thickening of ligamentum flavum, resulting in mild to moderate central spinal canal stenosis. Mild disc bulges at all levels, but no high grade central spinal canal stenosis at other levels. No high grade neural foraminal stenosis at any level. No dest ructive osseous lesion. Vertebral body heights are maintained. IMPRESSION: 1)Mild spondylosis. 2)Low-grade central stenosis at L2-3. 3)No high grade central spinal canal stenosis or high grade neural foraminal stenosis at any level. POS: [facility]
== END 2018-12-02 10:44 | disposition home or self-care (01) ==
LOC: NAV ERS 09:28
DX: M51.36 Other intervertebral disc degeneration, lumbar region (principal); I25.10 Atherosclerotic heart disease of native coronary artery without angina pectoris; I11.0 Hypertensive heart disease with heart failure; I50.9 Heart failure, unspecified; K21.9 Gastro-esophageal reflux disease without esophagitis; E05.90 Thyrotoxicosis, unspecified without thyrotoxic crisis or storm; E66.9 Obesity, unspecified; Z87.891 Personal history of nicotine dependence; Z79.891 Long term (current) use of opiate analgesic; Z79.82 Long term (current) use of aspirin; Z79.51 Long term (current) use of inhaled steroids
CPT/HCPCS: 72131; 96372; J1030

== ENCOUNTER 2018-12-06 21:57 | Emergency (ER) | payer MEDICAID, OTHER ==
--- NOTE | 2018-12-06 22:41 | RAD ---
FOUR VIEWS LEFT KNEE: 12/06/18 HISTORY: History of left knee pain. Fell off of small loading ramp on trailer yesterday. AP, lateral and both oblique views left knee obtained. Left knee arthroplasty is in place. No evidence of fractures or loosening seen. IMPRESSION: Left knee arthroplasty. POS: [facility]
--- NOTE | 2018-12-06 22:42 | RAD ---
TWO VIEWS LEFT HIP: 12/06/18 HISTORY: Left hip pain after trauma. AP and frogleg views left hip is obtained. Two views left hip demonstrates no evidence of fractures, subluxations or bony lesions. IMPRESSION: Normal two views left hip. POS: [facility]
== END 2018-12-06 23:00 | disposition home or self-care (01) ==
LOC: NAV ERS 21:57
DX: M25.562 Pain in left knee (principal); M25.552 Pain in left hip; I25.10 Atherosclerotic heart disease of native coronary artery without angina pectoris; I25.2 Old myocardial infarction; E05.90 Thyrotoxicosis, unspecified without thyrotoxic crisis or storm; K21.9 Gastro-esophageal reflux disease without esophagitis; E78.2 Mixed hyperlipidemia; I12.9 Hypertensive chronic kidney disease with stage 1 through stage 4 chronic kidney disease, or unspecified chronic kidney disease; N18.3 Chronic kidney disease, stage 3 (moderate); I50.9 Heart failure, unspecified; Z87.891 Personal history of nicotine dependence; Z79.899 Other long term (current) drug therapy

== ENCOUNTER 2019-10-14 09:35 | Emergency (ER) | payer OTHER ==
[2019-10-14 10:25] LABS: #Eosinphils 0.2 thou/uL (0.0-0.7); #Lymphocytes 1.1 thou/uL (1.20-3.40); #Monocytes 0.5 thou/uL (0.11-0.59); #Neutrophils 9.8 thou/uL (1.40-6.50); %Basophils 0.4 % (0.0-1.0); %Eosinophils 1.8 % (0.0-10.0); %Lymphocytes 9.1 % (21.0-51.0); %Monocytes 4.1 % (0.0-10.0); %Neutrophils 84.7 % (42.0-75.0); Hemoglobin 13.4 g/dL (12.0-16.0); Mean Corpuscular HGB CONC 33.5 g/dL (32.0-36.0); Mean Corpuscular Hemoglobin 31.2 pg (27.0-31.0); Mean Corpuscular Volume 93.2 fL (78.0-98.0); Mean Platelet Volume 7.6 fL (7.4-10.4); Platelet Count 247 thou/uL (130-400); RBC Distribution Width 13.2 % (11.5-14.5); Red Blood Cell (RBC) Count 4.29 mill/uL (4.20-5.40); White Blood Cell (WBC) Count 11.5 thou/uL (4.8-10.8)
[2019-10-14 10:32] LABS: Lactic Acid 1.1 mmol/L (0.5-2.2)
--- NOTE | 2019-10-14 10:34 | RAD ---
CHEST 1 VIEW PORTABLE: Date: 10/14/2019 HISTORY: Shortness of breath, dyspnea. Sore throat. Nasal congestion. Prior history of congestive heart failur e and COPD. COMPARISON: 07/27/2018. FINDINGS: Minimal cardiomegaly. Bilateral vascular congestion with some diffuse increased interstitial markings , more prominent than on prior study, possibly representing some minimal interstitial edema. Slight c ostophrenic angle blunting, greater on the right side, possibly representing minimal effusion. No con fluent pneumonia. IMPRESSION: Cardiomegaly with bilateral vascular congestion, possible very small right pleural effusion, and poss ible very mild interstitial edema. Short-term follow-up for clearing or stability is suggested. Ather osclerosis of aorta. POS: [facility]
[2019-10-14 10:38] LABS: ALT (SGPT) 22 U/L (8-55); AST (SGOT) 17 U/L (5-34); Alkaline Phosphatase 81 U/L (40-110); Anion Gap 15 mmol/L (10-20); BUN (Urea Nitrogen) 16 mg/dL (9.8-20.1); Bilirubin, Total 0.6 mg/dL (0.2-1.2); Calc. Creatinine Clearance 0 mL/min (70-130); Calcium 9.3 mg/dL (7.8-10.44); Carbon Dioxide 22 mmol/L (22-29); Chloride 105 mmol/L (98-107); Estimated GFR-MDRD 49; Globulin 2.5 g/dL (2.4-3.5); Glucose 109 mg/dL (70-105); Magnesium 1.9 mg/dL (1.6-2.6); Potassium 4.8 mmol/L (3.5-5.1); Protein, Total 6.5 g/dL (6.0-8.3); Sodium 137 mmol/L (136-145)
[2019-10-14] MEDS ORDERED: Furosemide 40 MG/4 ML VIAL ONE (10:53)
[2019-10-14 10:57] LABS: Bilirubin Negative (Negative); Blood, Urine Trace (Negative); Clarity Clear (Clear); Glucose, Urine (Dipstick) Negative (Negative); Leukocyte Trace (Negative); Nitrite Negative (Negative); Protein, Urine (Dipstick) Negative (Neg-Trace)
[2019-10-14 11:03] LABS: Bacteria/HPF 1+ HPF (None Seen); RBC/HPF 0-3 HPF (0-3); Squamous Epithelial 0-3 HPF (0-3)
== END 2019-10-14 11:37 | disposition short-term general hospital (02) ==
LOC: NAV ERS 09:35
DX: I13.0 Hypertensive heart and chronic kidney disease with heart failure and stage 1 through stage 4 chronic kidney disease, or unspecified chronic kidney disease (principal); I50.1 Left ventricular failure, unspecified; N18.3 Chronic kidney disease, stage 3 (moderate); J44.9 Chronic obstructive pulmonary disease, unspecified; M06.9 Rheumatoid arthritis, unspecified; I25.10 Atherosclerotic heart disease of native coronary artery without angina pectoris; I25.2 Old myocardial infarction; E05.90 Thyrotoxicosis, unspecified without thyrotoxic crisis or storm; K21.9 Gastro-esophageal reflux disease without esophagitis; E78.2 Mixed hyperlipidemia; E66.9 Obesity, unspecified; F17.210 Nicotine dependence, cigarettes, uncomplicated; Z79.899 Other long term (current) drug therapy; Z79.82 Long term (current) use of aspirin; Z79.02 Long term (current) use of antithrombotics/antiplatelets
CPT/HCPCS: 71045; 80053; 81003; 81015; 83605; 83735; 83880; 84484; 85025; 87086; 93005; 94760; 96374; J1940

== ENCOUNTER 2019-11-16 13:58 | Emergency (ER) | payer OTHER ==
[2019-11-16 14:39] LABS: Bilirubin Negative (Negative); Blood, Urine Small (Negative); Clarity Clear (Clear); Glucose, Urine (Dipstick) Negative (Negative); Leukocyte Negative (Negative); Nitrite Negative (Negative); Protein, Urine (Dipstick) Negative (Neg-Trace); Urobilinogen 0.2 mg/dL (Less than 2)
[2019-11-16 14:53] LABS: Bacteria/HPF None Seen HPF (None Seen); Squamous Epithelial 0-3 HPF (0-3); WBC/HPF None Seen HPF (0-3)
== END 2019-11-16 15:30 | disposition home or self-care (01) ==
LOC: NAV ERS 13:58
DX: G89.29 Other chronic pain (principal); M54.5 Low back pain; R31.29 Other microscopic hematuria; M06.9 Rheumatoid arthritis, unspecified; I25.10 Atherosclerotic heart disease of native coronary artery without angina pectoris; I25.2 Old myocardial infarction; E05.90 Thyrotoxicosis, unspecified without thyrotoxic crisis or storm; K21.9 Gastro-esophageal reflux disease without esophagitis; E78.2 Mixed hyperlipidemia; E66.9 Obesity, unspecified; J44.9 Chronic obstructive pulmonary disease, unspecified; I13.0 Hypertensive heart and chronic kidney disease with heart failure and stage 1 through stage 4 chronic kidney disease, or unspecified chronic kidney disease; N18.3 Chronic kidney disease, stage 3 (moderate); I50.9 Heart failure, unspecified; F17.210 Nicotine dependence, cigarettes, uncomplicated; Z79.82 Long term (current) use of aspirin; Z79.899 Other long term (current) drug therapy
CPT/HCPCS: 81003; 81015; 99283

== ENCOUNTER 2019-11-25 17:59 | Emergency (ER) | payer OTHER | END 2019-11-25 18:35 | disposition home or self-care (01) | LOC: NAV ERS 17:59 | DX: M54.5 Low back pain (principal); M06.9 Rheumatoid arthritis, unspecified; I25.10 Atherosclerotic heart disease of native coronary artery without angina pectoris; I25.2 Old myocardial infarction; E05.90 Thyrotoxicosis, unspecified without thyrotoxic crisis or storm; K21.9 Gastro-esophageal reflux disease without esophagitis; E78.2 Mixed hyperlipidemia; I13.0 Hypertensive heart and chronic kidney disease with heart failure and stage 1 through stage 4 chronic kidney disease, or unspecified chronic kidney disease; I50.9 Heart failure, unspecified; N18.3 Chronic kidney disease, stage 3 (moderate); E66.9 Obesity, unspecified; J44.9 Chronic obstructive pulmonary disease, unspecified; F17.210 Nicotine dependence, cigarettes, uncomplicated; Z79.82 Long term (current) use of aspirin; Z79.899 Other long term (current) drug therapy | CPT/HCPCS: 99283 ==

== ENCOUNTER 2020-03-08 12:37 | Emergency (ER) | payer OTHER | END 2020-03-08 13:12 | disposition home or self-care (01) | LOC: NAV ERS 12:37 | DX: L23.7 Allergic contact dermatitis due to plants, except food (principal); I13.0 Hypertensive heart and chronic kidney disease with heart failure and stage 1 through stage 4 chronic kidney disease, or unspecified chronic kidney disease; I50.9 Heart failure, unspecified; N18.3 Chronic kidney disease, stage 3 (moderate); M06.9 Rheumatoid arthritis, unspecified; I25.10 Atherosclerotic heart disease of native coronary artery without angina pectoris; I25.2 Old myocardial infarction; E05.90 Thyrotoxicosis, unspecified without thyrotoxic crisis or storm; K21.9 Gastro-esophageal reflux disease without esophagitis; I10 Essential (primary) hypertension; E78.2 Mixed hyperlipidemia; J44.9 Chronic obstructive pulmonary disease, unspecified; E66.9 Obesity, unspecified; F17.210 Nicotine dependence, cigarettes, uncomplicated; Z79.82 Long term (current) use of aspirin; Z79.899 Other long term (current) drug therapy | CPT/HCPCS: 99282 ==

== ENCOUNTER 2020-08-12 11:03 | Emergency (ER) | payer OTHER ==
[2020-08-12] MEDS ORDERED: Acetaminophen 500 MG TAB ONE (11:21)
--- NOTE | 2020-08-12 11:28 | RAD ---
Exam: Left hand 3 views: HISTORY: Left hand pain COMPARISON: None FINDINGS: Minimal degenerative and osteoarthrosis change. No evidence for fracture, dislocation, or other significant acute osseous abnormality. IMPRESSION: No significant acute process.
--- NOTE | 2020-08-12 11:37 | RAD ---
LEFT WRIST 3 VIEWS: Date: 08/12/2020 HISTORY: Wrist pain. FINDINGS: Carpals appear normally aligned. No fracture of the distal radius or carpals. The visualized metacarp als appear intact. History states pain at base of fifth metacarpal. See associated exam of left hand. IMPRESSION: Unremarkable left wrist. POS: [facility]
== END 2020-08-12 11:35 | disposition home or self-care (01) ==
LOC: NAV ERS 11:03
DX: S60.222A Contusion of left hand, initial encounter (principal); M06.9 Rheumatoid arthritis, unspecified; I25.10 Atherosclerotic heart disease of native coronary artery without angina pectoris; I25.2 Old myocardial infarction; E05.90 Thyrotoxicosis, unspecified without thyrotoxic crisis or storm; E78.5 Hyperlipidemia, unspecified; E66.9 Obesity, unspecified; K21.9 Gastro-esophageal reflux disease without esophagitis; E78.00 Pure hypercholesterolemia, unspecified; E78.1 Pure hyperglyceridemia; I13.0 Hypertensive heart and chronic kidney disease with heart failure and stage 1 through stage 4 chronic kidney disease, or unspecified chronic kidney disease; I50.9 Heart failure, unspecified; N18.30 Chronic kidney disease, stage 3 unspecified; Z79.82 Long term (current) use of aspirin; Z79.899 Other long term (current) drug therapy; X58.XXXA Exposure to other specified factors, initial encounter

== ENCOUNTER 2023-06-11 03:18 | Emergency (ER) | payer OTHER ==
[2023-06-11] MEDS ORDERED: Ipratropium/Albuterol 3 ML NEB ONE (03:23)
[2023-06-11] MEDS ORDERED: Nitroglycerin 2% Ointment 1 INCH/1 GM Packet ONE ×2 (03:33→04:31)
[2023-06-11 03:35] LABS: #Basophils 0.1 thou/uL (0.0-0.2); #Eosinphils 0.4 thou/uL (0.0-0.7); #Lymphocytes 2.6 thou/uL (1.20-3.40); #Monocytes 1.1 thou/uL (0.11-0.59); #Neutrophils 7.7 thou/uL (1.40-6.50); %Basophils 0.7 % (0.0-1.0); %Lymphocytes 21.7 % (21.0-51.0); %Monocytes 9.6 % (0.0-10.0); %Neutrophils 65.1 % (42.0-75.0); Hematocrit 42.4 % (36.0-47.0); Hemoglobin 13.2 g/dL (12.0-16.0); Manual Diff?? NO; Mean Corpuscular HGB CONC 31.3 g/dL (32.0-36.0); Mean Corpuscular Volume 92.8 fl (78.0-98.0); Mean Platelet Volume 7.6 fL (7.4-10.4); Platelet Count 260 10x3/uL (130-400); RBC Distribution Width 14.4 % (11.5-14.5); Red Blood Cell (RBC) Count 4.56 mill/uL (4.20-5.40); White Blood Cell (WBC) Count 11.8 10x3/uL (4.8-10.8)
[2023-06-11 03:50] LABS: Albumin 3.9 g/dL (3.5-5.0); Anion Gap 14 mmol/L (10-20); BUN (Urea Nitrogen) 16 mg/dL (9.8-20.1); Bilirubin, Total 1.1 mg/dL (0.2-1.2); Calc. Creatinine Clearance 0 mL/min (70-130); Calcium 9.1 mg/dL (7.6-10.4); Carbon Dioxide 23 mmol/L (22-29); Chloride 104 mmol/L (98-107); Estimated GFR 38; Globulin 2.6 g/dL (2.4-3.5); Glucose 253 mg/dL (70-105); Potassium 4.4 mmol/L (3.5-5.1); Protein, Total 6.5 g/dL (6.0-8.3); Sodium 137 mmol/L (136-145)
[2023-06-11] MEDS ORDERED: methylPREDNISolone Sod Succ/PF 125 MG/2 ML VIAL ONE (03:50)
[2023-06-11] MEDS ORDERED: Furosemide 20 MG/2 ML VIAL ONE (03:50)
[2023-06-11] MEDS ORDERED: Furosemide 40 MG/4 ML VIAL ONE (03:50)
[2023-06-11 03:51] LABS: ALT (SGPT) 149 U/L (8-55); AST (SGOT) 263 U/L (5-34); Alkaline Phosphatase 130 U/L (40-110); Troponin I 0.014 ng/mL (< 0.028)
== END 2023-06-11 05:10 | disposition short-term general hospital (02) ==
LOC: NAV ERS 03:18
DX: I11.0 Hypertensive heart disease with heart failure (principal); I50.9 Heart failure, unspecified; J44.1 Chronic obstructive pulmonary disease with (acute) exacerbation; R74.01 Elevation of levels of liver transaminase levels; N17.9 Acute kidney failure, unspecified; F17.210 Nicotine dependence, cigarettes, uncomplicated
CPT/HCPCS: 51702; 71045; 80053; 83880; 84484; 85025; 93005; 94660; 94760; 96374; 96375; J1940; J2930; J7620

== ENCOUNTER 2023-09-15 20:28 | Emergency (ER) | payer OTHER ==
[2023-09-15] MEDS ORDERED: Verapamil 5 MG/2 ML VIAL ONE (20:50)
[2023-09-15 20:53] LABS: #Basophils 0.1 thou/uL (0.0-0.2); #Eosinphils 0.6 thou/uL (0.0-0.7); #Lymphocytes 2.4 thou/uL (1.20-3.40); #Monocytes 1.5 thou/uL (0.11-0.59); #Neutrophils 8.8 thou/uL (1.40-6.50); %Basophils 1.1 % (0.0-1.0); %Eosinophils 4.6 % (0.0-10.0); %Lymphocytes 17.8 % (21.0-51.0); %Monocytes 11.4 % (0.0-10.0); %Neutrophils 65.2 % (42.0-75.0); Hematocrit 41.5 % (36.0-47.0); Hemoglobin 12.9 g/dL (12.0-16.0); Mean Corpuscular Volume 96.7 fl (78.0-98.0); Mean Platelet Volume 6.8 fL (7.4-10.4); Platelet Count 358 10x3/uL (130-400); Red Blood Cell (RBC) Count 4.29 mill/uL (4.20-5.40); White Blood Cell (WBC) Count 13.5 10x3/uL (4.8-10.8)
[2023-09-15 20:56] LABS: Base Excess-Venous -11.8 mmol/L (-2.0 to 3.0); Bicarbonate (HCO3v) 20.2 mmol/L (22.0-28.0); CO2 Tension (PvCO2) 74.4 mmHg (42.0-51.0); Hemoglobin - Calc 14.6 g/dL (12.0-16.0); Sodium 145 mmol/L (138-145); vO2 Saturation-calc 29.6 % (60.0-85.0)
[2023-09-15 20:57] LABS: Calcium, Ionized 1.29 mmol/L (1.15-1.33); Chloride 106 mmol/L (98-107); Potassium 4.2 mmol/L (3.5-5.1); T. Carbon Dioxide 22.5 mmol/L (22.0-28.0)
[2023-09-15 21:07] LABS: Bilirubin Negative (Negative); Blood, Urine Negative (Negative); Clarity Clear (Clear); Glucose, Urine (Dipstick) >=1000 mg/dL (Negative); Ketone, Urine Negative (Negative); Leukocyte Negative (Negative); Nitrite Negative (Negative); Protein, Urine (Dipstick) 100 mg/dL (Neg-Trace)
[2023-09-15 21:08] LABS: ALT (SGPT) 86 U/L (8-55); AST (SGOT) 36 U/L (5-34); Albumin 3.9 g/dL (3.5-5.0); Alkaline Phosphatase 126 U/L (40-110); Anion Gap 19 mmol/L (10-20); BUN (Urea Nitrogen) 12 mg/dL (9.8-20.1); Bilirubin, Total 1.1 mg/dL (0.2-1.2); Calc. Creatinine Clearance 0 mL/min (70-130); Calcium 9.2 mg/dL (7.8-10.44); Carbon Dioxide 18 mmol/L (22-29); Chloride 106 mmol/L (98-107); Estimated GFR 52; Globulin 2.9 g/dL (2.4-3.5); Glucose 176 mg/dL (70-105); Potassium 3.9 mmol/L (3.5-5.1); Protein, Total 6.8 g/dL (6.0-8.3); Prothrombin Time 13.6 sec (12.0-14.7); Sodium 139 mmol/L (136-145)
[2023-09-15 21:09] LABS: PTT 26.6 sec (22.9-36.1)
[2023-09-15 21:11] LABS: WBC/HPF 0-3 HPF (0-3)
[2023-09-15 21:12] LABS: D-Dimer Test 1.95 *mcg/mL (0.27-0.43)
[2023-09-15 21:18] LABS: Troponin I 0.039 ng/mL (< 0.028)
[2023-09-15 22:18] LABS: SARS-CoV-2 NAA Rapid Test Not Detected (NotDetected)
[2023-09-15 22:55] LABS: Actual Bicarbonate (HCO3a) 25.2 mEq/L (22-28); Base Excess (BEa) 1.4 mEq/L (-2.0 to +3.0); CO2 Tension 36.6 mmHg (35.0-45.0); Calcium, Ionized (arterial) 1.11 mmol/L (1.12-1.30); Carboxyhemoglobin (COHb) 1.4 gm% (0.0-3.0); Hematocrit-ABG 35 % (36.0-47.0); Hemoglobin (Hb) 11.9 g/dL (12.0-16.0); O2 Tension (PaO2), arterial 453.3 mmHg (> 80.0); Potassium - ABG Lab 3.65 mmol/L (3.70-5.30); pH, Arterial 7.455 (7.35-7.45)
[2023-09-15 22:57] LABS: Puncture Site RBA
== END 2023-09-15 22:02 | disposition short-term general hospital (02) ==
LOC: NAV ERS 20:28
DX: J96.92 Respiratory failure, unspecified with hypercapnia (principal); J96.91 Respiratory failure, unspecified with hypoxia; E87.29 Other acidosis; I13.0 Hypertensive heart and chronic kidney disease with heart failure and stage 1 through stage 4 chronic kidney disease, or unspecified chronic kidney disease; I50.9 Heart failure, unspecified; N18.30 Chronic kidney disease, stage 3 unspecified; J44.9 Chronic obstructive pulmonary disease, unspecified; Z87.891 Personal history of nicotine dependence
CPT/HCPCS: 31500; 36600; 51702; 71045; 80053; 81001; 82330; 82435; 82803; 82805; 83605; 84132; 84295; 84484; 85014; 85025; 85379; 85610; 85730; 87040; 87804; 87807; 93005; 94760; U0002